=== PATIENT | male | born 1975 | race Caucasian/White ===

== ENCOUNTER 2018-12-05 07:49 | Day surgery (SDC) | payer OTHER ==
[2018-12-02 10:24] VITALS: BMI 27.1
[~2018-12-05 07:49] MED LIST: LACTATED RINGERS 1,000 ML IV SCH
[2018-12-05 08:09] VITALS: TEMP 97.1
[2018-12-05] MEDS ORDERED: LIDOCAINE 1% 20 ML VIAL (10MG/ML) FOR IV START INTRADERMA ONE (08:16)
[2018-12-05 08:29] LABS: Glucose,Whole Blood 166 mg/dL (75-99)
[2018-12-05] MEDS ORDERED: PROPOFOL 10 MG/ML 20 ML VIAL IV ONE (08:44)
[2018-12-05 09:31] VITALS: BP 106/75; PULSE 85; RESP 18
--- NOTE | 2018-12-05 13:24 | P.PCN ---
Date of Procedure: 12/05/18 Procedure(s) Performed: Procedure: Esophagogastroduodenoscopy and biopsy. Preoperative diagnosis: Dysphagia. Preoperative diagnosis: 1. Sliding hiatal hernia and LA grade B distal esophagitis. 2. Corrugations in the esophagus raising the possibility of eosinophilic esophagitis. 3. Diffuse mild gastritis. 4. Retained partially digested food in the stomach raising the possibility of gastroparesis. 5. Multiple biopsies obtained from the duodenum, antrum and esophagus. Preparation and sedation: Were provided by anesthesia. Brief clinical history: The patient is a 43-year-old male who I have evaluated in the office last month regarding dysphagia of around 3 months duration. The patient has history of diabetes but does not have any history of reflux. His difficulties were mostly with solid food and on 5 or 6 occasions he had to bring the food back up. Today, the patient reports that he has been feeling better since he was started on acid suppressive therapy around a month ago. This evaluation is to assess for esophagitis or complicated reflux disease. Procedure: With the patient on his left lateral decubitus position and after informed consent and adequate sedation, I passed the Olympus-GIF 190 video upper endoscope through the cricopharyngeus down the esophagus. GE junction was around 40 cm from the incisors and there was a small sliding hiatal hernia. The esophagus showed corrugations and 2 short linear erosions terminating at the GE junction. These findings are consistent with both LA grade B reflux esophagitis and possible eosinophilic esophagitis. There was a wide open short ring at the level of the GE junction that did not impede the advancement of the endoscope and it did not appear to be of clinical significance for his swallowing issues. The endoscope was then passed into the stomach which was insufflated with air and inspected in detail including the retroflex view in the cardia. There was some partially digested food in the stomach with no evidence of gastric outlet obstruction. The antrum showed mottling and erythema but no ulcers. Pyloric channel did not show any ulcers. Duodenal bulb, post bulbar area and descending duodenum appeared within normal limits. I obtained multiple biopsies from the duodenum, antrum and esophagus then the endoscope was withdrawn. The patient tolerated the procedure well and Plan: The patient was reassured and I discussed in detail the findings with him and with his . He will continue antireflux diet and measures and acid suppressive therapy. I would like to see him in the office in around 2 months and make further plans based on his course and biopsy results. I will keep you updated on his progress.
== END 2018-12-05 09:39 | disposition home or self-care (01) ==
LOC: ORWHC2ENDO 07:49 → MERGE 10:35 → EDBD 10:35
DX: K44.9 Diaphragmatic hernia without obstruction or gangrene (principal); E11.9 Type 2 diabetes mellitus without complications; K20.0 Eosinophilic esophagitis; K21.9 Gastro-esophageal reflux disease without esophagitis; R13.10 Dysphagia, unspecified; Z79.84 Long term (current) use of oral hypoglycemic drugs; Z79.899 Other long term (current) drug therapy; Z88.5 Allergy status to narcotic agent; K29.50 Unspecified chronic gastritis without bleeding
CPT/HCPCS: 88305; 88342; 43239; J2704

== ENCOUNTER 2021-05-21 06:34 | Day surgery (SDC) | payer OTHER ==
[2021-05-16 10:44] VITALS: BMI 28.3
[~2021-05-21 06:34] MED LIST changes: +LIDOCAINE 1% (10MG/ML) FOR IV START INTRADERMA PRN
[2021-05-21 07:02] VITALS: TEMP 98.2
[2021-05-21 07:14] LABS: Glucose,Whole Blood 138 mg/dL (75-99)
[2021-05-21] MEDS ORDERED: PROPOFOL 10 MG/ML 20 ML VIAL IV ONE (07:20)
--- NOTE | 2021-05-21 07:45 | P.PCN ---
Date of Procedure: 05/21/21 Procedure(s) Performed: BRIEF HISTORY: Patient is a 45-year-old pleasant abelinoe scheduled for an elective colonoscopy as a part of screening for colorectal neoplasia. PROCEDURE PERFORMED: Colonoscopy. PREOPERATIVE DIAGNOSIS: screening for colon cancer. IV sedation per Anesthesia. PROCEDURE: After informed consent was obtained, the patient, was brought into the endoscopy unit. IV sedation was administered by Anesthesia under continuous monitoring. Digital rectal examination was normal. Initially the Olympus CF-160 flexible video colonoscope was then inserted in the rectum, gradually advanced into the cecum without any difficulty. Careful examination was performed as the scope was gradually being withdrawn. Ileocecal valve and the appendiceal orifice were visualized and appeared normal. Prep was excellent. Mucosa of the cecum, ascending colon, transverse colon, descending colon, sigmoid colon, and rectum appeared normal. Retroflexion was performed in the rectum and no lesions were seen. The patient tolerated the procedure well. IMPRESSION: Normal-appearing colon from rectum to cecum with no evidence of colorectal neoplasia. RECOMMENDATIONS: Findings of this examination were discussed with the patient as well as his family. He was advised to have a repeat surveillance colonoscopy in 10 years..
[2021-05-21 08:05] VITALS: BP 129/67; PULSE 90; RESP 20
== END 2021-05-21 08:18 | disposition home or self-care (01) ==
LOC: ORWHC2ENDO 06:34
PROVIDERS: ATTEND Internal Medicine Gastroenterology
DX: Z12.11 Encounter for screening for malignant neoplasm of colon (principal); K21.9 Gastro-esophageal reflux disease without esophagitis; E11.9 Type 2 diabetes mellitus without complications; I10 Essential (primary) hypertension; Z88.5 Allergy status to narcotic agent; Z79.84 Long term (current) use of oral hypoglycemic drugs; Z79.899 Other long term (current) drug therapy; Z98.890 Other specified postprocedural states
CPT/HCPCS: J2704; G0121

== ENCOUNTER 2022-10-16 09:42 | Day surgery (SDC) | payer OTHER ==
[2022-10-16 10:01] VITALS: TEMP 96.9
[2022-10-16 10:15] LABS: Glucose,Whole Blood 136 mg/dL (70-110)
[2022-10-16] MEDS ORDERED: fentaNYL (PF) 50 MCG/ML 2 ML AMP ONE (10:27)
[2022-10-16] MEDS ORDERED: LIDOCAINE 2% INJ 20 MG/ML (2 ML VIAL) ONE (10:27)
[2022-10-16] MEDS ORDERED: MIDAZOLAM 2 MG/2 ML VIAL ONE (10:27)
[2022-10-16] MEDS ORDERED: PROPOFOL 10 MG/ML 20 ML VIAL IV ONE (10:27)
--- NOTE | 2022-10-16 11:01 | P.PCN ---
Date of Procedure: 10/16/22 Procedure(s) Performed: BRIEF HISTORY: Patient is a 47 year-old, pleasant, white male scheduled for an upper endoscopy as a part of evaluation of epigastric discomfort for the last 3- 4 months duration. He was started on omeprazole to 40 mg daily and symptoms are gradually improving. PROCEDURE PERFORMED: Esophagogastroduodenoscopy with biopsy. PREOPERATIVE DIAGNOSIS: Epigastric pain of 3 months duration. IV sedation per anesthesia. PROCEDURE: After informed consent was obtained, the patient was brought into the endoscopy unit. IV sedation was administered by Anesthesia under continuous monitoring. Initially the Olympus GIF-140 video endoscope was inserted into the mouth. Esophagus intubated without any difficulty. It was gradually advanced into the stomach and duodenum and carefully examined. The bulb and the second part of the duodenum appeared normal. The scope at this time was withdrawn to the stomach, adequately insufflated with air, and upon careful examination, mucosa of the antrum, had scattered erosions and biopsies were done from this area. Mucosa of the body, cardia and the fundus appeared normal. The scope was then withdrawn into the esophagus. The GE junction was located at 39 cm from the incisors. There were linear erosions in the distal esophagus consistent with LA grade B reflux esophagitis. Rest of esophagus appeared normal and the patient tolerated the procedure well. IMPRESSION: 1. Linear erosions in the distal esophagus consistent with LA grade B reflux esophagitis. 2. Antral erosive gastritis. RECOMMENDATIONS: The findings of this examination were discussed with the patient as well as his family. He was advised to continue with omeprazole 40 mg daily and follow antireflux measures. Follow with the biopsy results..
[2022-10-16 11:12] VITALS: RESP 16
[2022-10-16 11:27] VITALS: BP 118/80; PULSE 81
== END 2022-10-16 11:44 | disposition home or self-care (01) ==
LOC: ORWHC2ENDO 09:42
PROVIDERS: ATTEND Internal Medicine Gastroenterology
DX: K29.50 Unspecified chronic gastritis without bleeding (principal)
CPT/HCPCS: 43239; J2250; J3010; J2704; J2001; 88305

== ENCOUNTER 2024-08-09 10:03 | Emergency (ER) | payer OTHER ==
[2024-08-09 10:09] VITALS: RESP 18
--- NOTE | 2024-08-09 10:40 | ED ---
Fall HPI - General Chief Complaint: Fall Stated Complaint: left rib pain - fell Time Seen by Provider: 08/09/24 10:19 Source: patient, RN notes reviewed Mode of arrival: ambulatory - History of Present Illness Initial Comments: Patient is a 48 year old male presenting for rib pain after a fall on 07/28/24. 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 He denies head injury. He states that his entire body was in pain for 4 days and he took hot baths, applied ice and took Ibuprofen as needed, which resolved most of his pain except one area on his left side. He states the pain is a 3/10 and is only worse when he takes an "extremely deep breath" or puts pressure on the area. He denies any chest pain, shortness of breath, numbness or tingling, headache, or decreased range of motion in extremities. - Related Data Home Medications Medication Instructions Recorded Confirmed lisinopriL [Zestril] 2.5 mg PO HS 12/02/18 10/16/22 Atorvastatin [Lipitor] 10 mg PO HS 04/15/21 10/14/22 Cetirizine HCl [Zyrtec] 10 mg PO HS 04/15/21 10/14/22 Empagliflozin/Linagliptin 1 each PO HS 04/15/21 10/14/22 [Glyxambi 10 mg-5 mg Tablet] Sildenafil Citrate [Sildenafil] 20 mg PO DIRECTED PRN 05/19/21 10/16/22 Empagliflozin/Metformin HCl 1 tab PO HS 10/14/22 10/14/22 [Synjardy Xr 12.5-1,000 mg Tab] Fluticasone Nasal [place] [Flonase 1 spray EA NOSTRIL QAM PRN 10/14/22 10/16/22 Nasal [place]] Omeprazole 40 mg PO DAILY PRN 10/14/22 10/16/22 Pioglitazone [Actos] 15 mg PO QAM 10/14/22 10/16/22 Pseudoephedrine HCl [Sudafed 240 mg PO HS PRN 10/14/22 10/16/22 24-Hour] Allergies Allergy/AdvReac Type Severity Reaction Status Date / Time morphine Allergy Severe Nausea & Verified 08/09/24 10:08 Vomiting Review of Systems ROS Statement: Those systems with pertinent positive or pertinent negative responses have been documented in the HPI. ROS Other: All systems not noted in ROS Statement are negative. Past Medical History Past Medical History: Diabetes Mellitus, GERD/Reflux, Osteoarthritis (OA) Additional Past Medical History / Comment(s): LISINOPRIL/ATORVASTATIN FOR PREVENTATIVE, past vertigo History of Any Multi-Drug Resistant Organisms: None Reported Past Surgical History: Orthopedic Surgery Additional Past Surgical History / Comment(s): rt knee arthroscopy, vasectomy, left shoulder surgery for thoracic outlet syndrome, R shoulder scope for tendon impingement, EGD Past Anesthesia/Blood Transfusion Reactions: No Reported Reaction, Motion Sickness Additional Past Anesthesia/Blood Transfusion Reaction / Comment(s): Past vertigo, no blood transfusions Past Psychological History: No Psychological Hx Reported Smoking Status: Never smoker Past Alcohol Use History: Rare Past Drug Use History: None Reported - Past Family History Mother Family Medical History: No Reported History General Exam Limitations: no limitations General appearance: alert, in no apparent distress Head exam: Present: atraumatic, normocephalic, normal inspection Respiratory exam: Present: normal lung sounds bilaterally, chest wall tenderness (Left sided). Absent: respiratory distress, wheezes, rales, rhonchi, stridor Cardiovascular Exam: Present: regular rate, normal rhythm, normal heart sounds. Absent: systolic murmur, diastolic murmur, rubs, gallop, clicks GI/Abdominal exam: Present: soft, normal bowel sounds. Absent: distended, tenderness, guarding, rebound, rigid Extremities exam: Present: normal inspection, full ROM, normal capillary refill. Absent: tenderness, pedal edema, joint swelling, calf tenderness Back exam: Present: normal inspection Neurological exam: Present: alert, oriented X3, CN II-XII intact Skin exam: Present: warm, dry, intact, normal color. Absent: rash Course Vital Signs 08/09/24 08/09/24 10:05 11:52 Temperature 97.6 F 97.8 F Pulse Rate 86 81 Respiratory 18 18 Rate Blood Pressure 129/82 124/79 O2 Sat by Pulse 99 99 Oximetry Medical Decision Making - Medical Decision Making Was pt. sent in by a medical professional or institution (, PA, ADVERTISING DISPATCH CLERKS SUPERVISOR, urgent care, hospital, or snf...) When possible be specific @ -No Did you speak to anyone other than the patient for history (EMS, parent, family, police, friend...)? What history was obtained from this source @ -No Did you review nursing and triage notes (agree or disagree)? Why? @ -I reviewed and agree with nursing and triage notes Were old charts reviewed (outside hosp., previous admission, EMS record, old EKG, old radiological studies, urgent care reports/EKG's, snf records)? Report findings @ -No old charts were reviewed Differential Diagnosis (chest pain, altered mental status, abdominal pain women, abdominal pain men, vaginal bleeding, weakness, fever, dyspnea, syncope, headache, dizziness, GI bleed, back pain, seizure, CVA, palpatations, mental health, musculoskeletal)? @ -Rib fracture rib contusion, pneumothorax, chest wall injury EKG interpreted by me (3pts min.). @ -None X-rays interpreted by me (1pt min.). @ -X-ray chest x-ray and rib x-rays showing no acute fracture, pneumothorax or acute abnormality CT interpreted by me (1pt min.). @ -None done U/S interpreted by me (1pt. min.). @ -None done What testing was considered but not performed or refused? (CT, X-rays, U/S, labs)? Why? @ -None What meds were considered but not given or refused? Why? @ -None Did you discuss the management of the patient with other professionals (professionals i.e. , PA, ADVERTISING DISPATCH CLERKS SUPERVISOR, lab, RT, psych nurse, transition social worker, compatibility test engineer, teacher, admissions officer, pillowcase turner)? Give summary @ -No Was smoking cessation discussed for >3mins.? @ -No Was critical care preformed (if so, how long)? @ -No Were there social determinants of health that impacted care today? How? (Homelessness, low income, unemployed, alcoholism, drug addiction, transportation, low edu. Level, literacy, decrease access to med. care, care home, rehab)? @ -No Was there de-escalation of care discussed even if they declined (Discuss DNR or withdrawal of care, Hospice)? DNR status @ -No What co-morbidities impacted this encounter? (DM, HTN, Smoking, COPD, CAD, Cancer, CVA, ARF, Chemo, Hep., AIDS, mental health diagnosis, sleep apnea, morbid obesity)? @ -None Was patient admitted / discharged? Hospital course, mention meds given and route, prescriptions, significant lab abnormalities, going to OR and other pertinent info. @ -Discharge patient had x-rays after fall x-rays are negative patient has rib contusion chest wall injury patient is discharged in stable condition return parameters fariba. Undiagnosed new problem with uncertain prognosis? @ -No Drug Therapy requiring intensive monitoring for toxicity (Heparin, Nitro, Insulin, Cardizem)? @ -No Were any procedures done? @ -No Diagnosis/symptom? @ -[Chest wall injury, rib contusion Acute, or Chronic, or Acute on Chronic? @ -Acute Uncomplicated (without systemic symptoms) or Complicated (systemic symptoms)? @ -Uncomplicated Side effects of treatment? @ -No Exacerbation, Progression, or Severe Exacerbation? @ -No Poses a threat to life or bodily function? How? (Chest pain, USA, ID, pneumonia, PE, COPD, DKA, ARF, appy, cholecystitis, CVA, Diverticulitis, Homicidal, Suicidal, threat to staff... and all critical care pts) @ -No Disposition Clinical Impression: Fall, Contusion of rib on left side Disposition: HOME SELF-CARE Condition: Stable Instructions (If sedation given, give patient instructions): Rib Contusion (ED) Additional Instructions: Please return to the Emergency Department if symptoms worsen or any other concerns. Is patient prescribed a controlled substance at d/c from ED?: No Referrals: Dontrell Mckinney MD [Primary Care Provider] - 1-2 days Time of Disposition: 11:46
--- NOTE | 2024-08-09 10:55 | XR ---
EXAMINATION TYPE: XR chest 2V DATE OF EXAM: 08/09/2024 10:51 AM COMPARISON: Chest radiographs from CLINICAL INDICATION: Male, 48 years old with history of fall; [facility] pain TECHNIQUE: XR chest 2V Frontal and lateral views of the chest. FINDINGS: Lungs/Pleura: There is no evidence of pleural effusion, focal consolidation, or pneumothorax. Pulmonary vascularity: Unremarkable. Heart/mediastinum: Cardiomediastinal silhouette is unremarkable. Musculoskeletal: No acute osseous pathology. IMPRESSION: No acute cardiopulmonary disease/process. [facility], , 08/09/2024 10:52 AM
--- NOTE | 2024-08-09 10:57 | XR ---
EXAMINATION TYPE: XR ribs bilateral DATE OF EXAM: 08/09/2024 10:51 AM COMPARISON: Same day. Plain film CLINICAL INDICATION: Male, 48 years old with history of fall; [facility], pain TECHNIQUE: XR ribs bilateral; Frontal and oblique views of the ribs with frontal chest radiograph. FINDINGS: The ribs have a normal appearance. No evidence of fracture. Overall, the lungs are clear. The cardiac silhouette is normal in size. The remaining osseous structures are intact. Stable left axillary sclerotic density. IMPRESSION: No acute osseous pathology. [facility], , 08/09/2024 10:54 AM
[2024-08-09 11:54] VITALS: BP 124/79; PULSE 81; TEMP 97.8
== END 2024-08-09 11:53 | disposition home or self-care (01) ==
LOC: EC 10:03
DX: S20.212A Contusion of left front wall of thorax, initial encounter (principal); Z88.5 Allergy status to narcotic agent; W00.0XXA Fall on same level due to ice and snow, initial encounter
CPT/HCPCS: 71046; 71110; 99283